=== PATIENT | female | born 1995 | race Caucasian/White ===

== ENCOUNTER 2021-12-26 12:08 | Emergency (ER) | payer SELFPAY ==
[2021-12-26 12:15] VITALS: BP 136/83; PULSE 66; TEMP 98.2; BMI 20.3
[2021-12-26] MEDS ORDERED: ONDANSETRON 4 MG TABLET PO ONE (13:33)
[2021-12-26] MEDS ORDERED: ACETAMINOPHEN 325 MG TABLET (FP) PO ONE (13:34)
== END 2021-12-26 14:31 | disposition home or self-care (01) ==
LOC: JER 12:08
DX: B34.9 Viral infection, unspecified (principal)
CPT/HCPCS: 87804; 99284-25; C9803; U0003; U0005